=== PATIENT | female | born 1945 | race Caucasian/White ===

== ENCOUNTER 2017-03-03 13:51 | Outpatient (CLI) | payer MEDICARE ==
[~2017-03-03] VITALS: Ht 160 cm; Wt 59.0 kg
[2017-03-03] MEDS ORDERED: albuterol 2.5 MG/3 ML nebule NEB PRN (14:50)
== END 2017-03-03 23:59 | disposition home or self-care (01) ==
LOC: RT 13:51
PROVIDERS: ATTEND Internal Medicine Pulmonary Disease
DX: J44.9 Chronic obstructive pulmonary disease, unspecified (principal); R06.09 Other forms of dyspnea; F17.200 Nicotine dependence, unspecified, uncomplicated
CPT/HCPCS: 94060; 94640; 94727; 94729

== ENCOUNTER 2017-09-27 05:34 | Inpatient (IN) | payer MEDICARE ==
[~2017-09-27] VITALS: Ht 160 cm; Wt 60.0 kg
[2017-09-27] MEDS ORDERED: ondansetron/PF 4mg/2ml inj IV ONE (06:55)
[2017-09-27] MEDS ORDERED: MORPHINE 2MG in 2ml NS syringe IV PRN (06:55)
[2017-09-27] MEDS ORDERED: morphine 4 MG/ML inj SYRINge IV PRN (06:59)
[2017-09-27 07:24] LABS: BASOPHILS % (AUTO) 0 % (0-1); EOSINOPHILS % (AUTO) 0 % (0-6); HEMOGLOBIN 17.7 g/dl (12.0-16.0); LYMPHOCYTES # (AUTO) 0.9 X10'3 (1.1-4.8); LYMPHOCYTES % (AUTO) 6.8 % (21-51); MEAN CORPUSCULAR HEMOGLOBIN 31.6 PG (27.0-31.0); MEAN CORPUSCULAR HGB CONC 33.5 % (33.0-36.5); MEAN CORPUSCULAR VOLUME 94.4 FL (78-98); MEAN PLATELET VOLUME 9.5 FL (7.4-10.4); MONOCYTES # (AUTO) 0.5 X10'3 (0-0.9); MONOCYTES % (AUTO) 3.9 % (2-12); NEUTROPHILS # (AUTO) 12.3 X10'3 (1.8-7.7); NEUTROPHILS % (AUTO) 89.3 % (42-75); PLATELET COUNT 181 X10'3 (140-440); RED BLOOD COUNT 5.61 X10'6 (4.20-5.60); RED CELL DISTRIBUTION WIDTH 13.8 % (11.5-14.5); WHITE BLOOD COUNT 13.8 X10'3 (4.5-11.0)
[2017-09-27 07:34] LABS: INR 1.1 INR; PARTIAL THROMBOPLASTIN TIME 27 SECONDS (22-32); PROTHROMBIN TIME 11.5 SECONDS (9.0-12.0)
[2017-09-27 07:34] LABS: CLARITY,URINE CLEAR (Clear); COLOR,URINE YELLOW (Yellow); GLUCOSE, URINE NEGATIVE (Neg); KETONES,URINE NEGATIVE (Neg); LEUKOCYTE ESTERASE ,URINE NEGATIVE (Neg); NITRITES, URINE NEGATIVE (Neg); OCCULT BLOOD,URINE MODERATE (Neg); PH,URINE 5.5 (4.8-8.0); PROTEIN,URINE 30 mg/dl (Neg); UROBILINOGEN,URINE 0.2 E.U/dL (0.2-1.0)
[2017-09-27 07:39] LABS: ALANINE AMINOTRANSFERASE 96 U/L (12-78); ALBUMIN 3.3 G/DL (3.4-5.0); ALBUMIN/GLOBULIN RATIO 0.9 (1.1-1.5); ALKALINE PHOSPHATASE 258 IU/L (46-116); ANION GAP 12 (8-16); ASPARTATE AMINO TRANSFERASE 103 U/L (10-37); BILIRUBIN,TOTAL 0.8 MG/DL (0.1-1.0); BLOOD UREA NITROGEN 30 MG/DL (7-18); BUN/CREATININE RATIO 34.5 (6.6-38.0); CALCIUM 8.5 MG/DL (8.5-10.1); CHLORIDE 100 MMOL/L (99-107); CREATININE 0.87 MG/DL (0.40-0.90); GLUCOSE 143 MG/DL (70-104); POTASSIUM 5.3 MMOL/L (3.5-5.1); SODIUM 134 MMOL/L (135-145); TOTAL CARBON DIOXIDE 22.2 MMOL/L (24-32); TOTAL PROTEIN 7.1 G/DL (6.4-8.2); eGFR 64 ML/MIN
[2017-09-27 07:41] LABS: UA COLLECTION TYPE FOLEY CATH
[2017-09-27 07:43] LABS: BACTERIA,URINE NONE SEEN /HPF (Neg); WBC,URINE 0-4 /HPF (0-4)
[2017-09-27 07:44] LABS: SQUAMOUS EPITHELIAL CELL,UR FEW /LPF (FEW)
[2017-09-27 07:45] LABS: AMORPHOUS URATES 1+
[2017-09-27] MEDS ORDERED: ipratropium/albuterol 3ml nebule NEB ONE (07:55)
[2017-09-27] MEDS ORDERED: albuterol 2.5 MG/3 ML nebule NEB ONE (07:55)
[2017-09-27] MEDS ORDERED: sodium bicarbonate (8.4%) 1 mEq/ml syringe ONE (09:00)
[2017-09-27] MEDS ORDERED: DOPamine/D5W 400mg/250ml bag IV ONE (09:00)
[2017-09-27] MEDS ORDERED: calcium chloride 100 MG/1 ML inj IV ONE (09:00)
[2017-09-27] MEDS ORDERED: etomidate 2mg/ml inj. ONE (09:00)
[2017-09-27] MEDS ORDERED: epiNEPHrine 0.1mg/ml 10ml syringe ONE (09:00)
[2017-09-27] MEDS ORDERED: atropine 0.1mg/ml 10ml syringe ONE (09:00)
[2017-09-27] MEDS ORDERED: normal saline 1000ml 1,000 ML IV SCH (09:06)
[2017-09-27] MEDS ORDERED: potassium Cl 20 mEq SR tablet PO PRN ×2 (09:10)
[2017-09-27] MEDS ORDERED: magnesium 4gm in 100ml NS 100 ML IV PRN (09:10)
[2017-09-27] MEDS ORDERED: potassium Cl 40MEQ/NS 500ml 500 ML IV PRN ×2 (09:10)
[2017-09-27] MEDS ORDERED: magnesium Cl slow-release 64mg tablet PO PRN (09:10)
[2017-09-27] MEDS ORDERED: magnesium 1gm/100ml D5W IVPB 100 ML IV PRN (09:10)
[2017-09-27 11:00] VITALS: BP 99/73
[2017-09-27] MEDS: ondansetron/PF 4mg/2ml inj IV PRN ×2 (11:34→18:53)
[2017-09-27] MEDS ORDERED: albuterol 2.5 MG/3 ML nebule NEB PRN (11:50)
[2017-09-27] MEDS ORDERED: albuterol 2.5 MG/3 ML nebule ONE (11:55)
[2017-09-27 15:00] VITALS: BP 114/76
[2017-09-27] MEDS: albuterol 2.5 MG/3 ML nebule NEB SCH ×2 (15:09→21:36)
[2017-09-27 19:00] VITALS: BP 123/81
[2017-09-27] MEDS ORDERED: HYDROcodone/acetaminophen 5mg/325mg tablet PO PRN (19:25)
[2017-09-27] MEDS ORDERED: HYDROcodone/acetaminophen 10/325mg tab PO PRN (19:25)
[2017-09-27] MEDS ORDERED: POTA10TA19 PO (20:29)
[2017-09-27] MEDS ORDERED: ATOR40TA PO (20:30)
[2017-09-27] MEDS ORDERED: FURO-150 PO (20:31)
[2017-09-27] MEDS ORDERED: POTA10TA36 PO (20:32)
[2017-09-27] MEDS ORDERED: APIX5TAB3 PO (20:35)
[2017-09-27] MEDS ORDERED: CLIN300C70 PO (20:36)
[2017-09-27] MEDS ORDERED: UMEC1DIS (20:40)
[2017-09-27 23:00] VITALS: BP 121/79
[2017-09-28 02:54] VITALS: BP 120/78
[2017-09-28 05:19] LABS: BASOPHILS % (AUTO) 0.1 % (0-1); EOSINOPHILS # (AUTO) 0.1 X10'3 (0-0.9); EOSINOPHILS % (AUTO) 0.5 % (0-6); HEMATOCRIT 52.1 % (35.0-45.0); HEMOGLOBIN 17.1 g/dl (12.0-16.0); LYMPHOCYTES # (AUTO) 2.1 X10'3 (1.1-4.8); LYMPHOCYTES % (AUTO) 19.2 % (21-51); MEAN CORPUSCULAR HEMOGLOBIN 31.2 PG (27.0-31.0); MEAN CORPUSCULAR HGB CONC 32.8 % (33.0-36.5); MEAN CORPUSCULAR VOLUME 95.2 FL (78-98); MEAN PLATELET VOLUME 10.3 FL (7.4-10.4); MONOCYTES % (AUTO) 9.3 % (2-12); NEUTROPHILS # (AUTO) 7.9 X10'3 (1.8-7.7); NEUTROPHILS % (AUTO) 70.9 % (42-75); PLATELET COUNT 164 X10'3 (140-440); RED BLOOD COUNT 5.47 X10'6 (4.20-5.60); RED CELL DISTRIBUTION WIDTH 14.1 % (11.5-14.5); WHITE BLOOD COUNT 11.1 X10'3 (4.5-11.0)
[2017-09-28 05:45] LABS: ANION GAP 13 (8-16); BLOOD UREA NITROGEN 39 MG/DL (7-18); BUN/CREATININE RATIO 32.8 (6.6-38.0); CALCIUM 9.1 MG/DL (8.5-10.1); CHLORIDE 99 MMOL/L (99-107); CREATININE 1.19 MG/DL (0.40-0.90); GLUCOSE 123 MG/DL (70-104); MAGNESIUM 2.1 MG/DL (1.5-2.4); SODIUM 134 MMOL/L (135-145); TOTAL CARBON DIOXIDE 21.9 MMOL/L (24-32); eGFR 45 ML/MIN
[2017-09-28 06:00] VITALS: BP 110/77
[2017-09-28] MEDS: albuterol 2.5 MG/3 ML nebule NEB SCH (07:17)
[2017-09-28] MEDS ORDERED: pantoprazole 40mg Tablet.DR PO SCH (07:30)
[2017-09-28] MEDS ORDERED: K and/or MAG REPLACEMENT MC SCH (08:00)
[2017-09-28] MEDS ORDERED: FURO20TA4 PO (10:07)
[2017-09-28] MEDS ORDERED: ATOR40TA72 PO (10:07)
[2017-09-28] MEDS ORDERED: UMEC1DIS PO (10:07)
[2017-09-28] MEDS ORDERED: POTA-82 PO (10:07)
[2017-09-28] MEDS ORDERED: LEVO50TA8 PO (10:07)
[2017-09-28] MEDS ORDERED: ALBU18HF2 IH (10:07)
[2017-09-28] MEDS ORDERED: PRIM250T48 PO (10:07)
[2017-09-28] MEDS ORDERED: APIX5TAB3 PO (10:07)
[2017-09-28 11:00] VITALS: BP 109/71
[2017-09-28] MEDS ORDERED: albuterol 2.5 MG/3 ML nebule NEB SCH (11:00)
[2017-09-28] MEDS ORDERED: PRIM250T32 PO (11:08)
[2017-09-28] MEDS ORDERED: FURO-150 PO (11:16)
[2017-09-28] MEDS ORDERED: POTA10CA44 PO (11:18)
[2017-09-28] MEDS ORDERED: non-formulary drug (Albuterol Sulfate (Ventolin Hfa) 1 PUFFS) IH PRN (13:15)
[2017-09-28] MEDS ORDERED: cefTRIAXone 1g/NS 100ml IVPB 100 ML IV SCH (13:15)
[2017-09-28] MEDS ORDERED: methylPREDNISolone sod succ 125mg/2ml vial IV ONE ×2 (13:15→13:20)
[2017-09-28] MEDS ORDERED: azithromycin/NS 500mg/250ml 250 ML IV SCH (13:15)
[2017-09-28] MEDS ORDERED: piperacillin/tazo 3.375gm/50ml 50 ML IV SCH (14:10)
[2017-09-28 14:16] LABS: ABG BASE EXCESS -3.8 mmol/L (-2.0-3.0); ABG HCO3 19.5 mmol/L (22.0-26.0); ABG OXYGEN SATURATION 90.8 % (95-98); ABG PCO2 (T) 32.2 mmHg (32.0-45.0); ABG PH (T) 7.401 (7.350-7.450); ABG PO2 (T) 60.9 mmHg (83-108); ALLEN'S TEST Positive; FCOHb 0.3 % (0.5-1.5); FLOW 50 L/min; FMetHb 0.2 % (0.3-1.12); FO2Hb 90.3 % (94-100); RESPIRATORY RATE (OBSERVED) 24 b/min; TOTAL HEMOGLOBIN 19.4 G/dl (12.0-16.0)
[2017-09-28] MEDS: ondansetron/PF 4mg/2ml inj IV PRN (14:18)
[2017-09-28] MEDS ORDERED: furosemide 10 MG/1 ML 10ml inj IV ONE ×2 (14:40→14:45)
[2017-09-28] MEDS ORDERED: heparin 10,000 units/1 ML INJ IV PRN (14:45)
[2017-09-28] MEDS ORDERED: heparin 10,000 units/1 ML INJ IV ONE (14:45)
[2017-09-28] MEDS ORDERED: iohexol 350MG/ML 100ml bottle IV ONE (14:48)
[2017-09-28 14:57] LABS: HEMATOCRIT 54.3 % (35.0-45.0); MEAN CORPUSCULAR HGB CONC 34.2 % (33.0-36.5); MEAN CORPUSCULAR VOLUME 93.3 FL (78-98); PLATELET COUNT 162 X10'3 (140-440); RED BLOOD COUNT 5.82 X10'6 (4.20-5.60); RED CELL DISTRIBUTION WIDTH 14.5 % (11.5-14.5); WHITE BLOOD COUNT 13.7 X10'3 (4.5-11.0)
[2017-09-28] MEDS ORDERED: ipratropium/albuterol 3ml nebule NEB SCH (15:00)
[2017-09-28 15:02] LABS: HEMOGLOBIN 18.6 g/dl (12.0-16.0)
[2017-09-28] MEDS ORDERED: methylPREDNISolone sod succ 125mg/2ml vial IV SCH ×2 (16:00)
[2017-09-28] MEDS ORDERED: heparin, porcine 5000 units/ml vial SQ SCH (20:00)
[2017-09-28] MEDS ORDERED: furosemide 40mg/4ml inj IV SCH (20:00)
[2017-09-28] MEDS ORDERED: primidone 250mg tablet PO SCH (20:00)
[2017-09-29] MEDS ORDERED: levoTHYROXINE 25mcg tablet PO SCH (07:30)
[2017-09-29] MEDS ORDERED: atorvastatin 20mg tablet PO SCH (08:00)
== END 2017-09-28 17:22 | disposition expired | DRG 963 ==
LOC: ER 05:35 → ED HOLD 09:06 → EDBEDREQ 09:58 → PCU 3S 10:30 → ED HOLD 10:30 → ICU 2S 09-28 15:12
PROVIDERS: ADMIT Internal Medicine; ATTEND Internal Medicine Critical Care Medicine
PROC: 0BH17EZ Insertion of Endotracheal Airway into Trachea, Via Natural or Artificial Opening (ICD-10-PCS; principal; 2017-09-28)
PROC: 5A1935Z Respiratory Ventilation, Less than 24 Consecutive Hours (ICD-10-PCS; 2017-09-28)
PROC: 5A12012 Performance of Cardiac Output, Single, Manual (ICD-10-PCS; 2017-09-28)
DX: S72.012A Unspecified intracapsular fracture of left femur, initial encounter for closed fracture (principal); J96.21 Acute and chronic respiratory failure with hypoxia; T79.1XXA Fat embolism (traumatic), initial encounter; I26.99 Other pulmonary embolism without acute cor pulmonale; D68.51 Activated protein C resistance; J44.1 Chronic obstructive pulmonary disease with (acute) exacerbation; I50.30 Unspecified diastolic (congestive) heart failure; W18.30XA Fall on same level, unspecified, initial encounter; I27.20 Pulmonary hypertension, unspecified; E03.9 Hypothyroidism, unspecified; G40.909 Epilepsy, unspecified, not intractable, without status epilepticus; W18.39XA Other fall on same level, initial encounter; R01.1 Cardiac murmur, unspecified; Y93.01 Activity, walking, marching and hiking; E78.5 Hyperlipidemia, unspecified; I46.9 Cardiac arrest, cause unspecified; I48.0 Paroxysmal atrial fibrillation; I51.3 Intracardiac thrombosis, not elsewhere classified; Z79.01 Long term (current) use of anticoagulants; Z87.891 Personal history of nicotine dependence; Y92.89 Other specified places as the place of occurrence of the external cause; Y99.8 Other external cause status; Z88.1 Allergy status to other antibiotic agents; Z88.2 Allergy status to sulfonamides; Z79.899 Other long term (current) drug therapy; Z86.73 Personal history of transient ischemic attack (TIA), and cerebral infarction without residual deficits
CPT/HCPCS: 36415; 36600; 71045; 73502; 80048; 80053; 81001; 82803; 83735; 85018; 85025; 85027; 85610; 85730; 86885; 86900; 86901; 92950; 93005; 93306; 94640; 94660; 94760; 99285; A6213; J0171; J0456; J0461; J0696; J1265; J1940; J2274; J2405; J2543; J2930; J3490; J7030; Q9967